=== PATIENT | female | born 1940 | race Caucasian/White ===

== ENCOUNTER → 2019-12-01 12:17 | Outpatient (CLI) | payer MEDICARE | END | disposition home or self-care (01) | LOC: D.RAD 12:17 | PROVIDERS: ATTEND Family Medicine | DX: M54.5 Low back pain (principal) ==

== ENCOUNTER → 2020-01-10 18:34 | Outpatient (CLI) | payer MEDICARE | END | disposition home or self-care (01) | LOC: D.LABREF 18:34 | PROVIDERS: ATTEND Orthopaedic Surgery | DX: M16.12 Unilateral primary osteoarthritis, left hip (principal) ==

== ENCOUNTER 2020-01-13 11:44 | Inpatient (IN) | payer MEDICARE ==
[~2020-01-13] VITALS: Ht 147.3 cm; Wt 72.6 kg
[2020-01-18 11:38] LABS: HEMATOCRIT 37.6 % (36.0-48.0); HEMOGLOBIN 12.2 g/dL (12-16); LYMPHOCYTES 33.4 % (15-50); MCH 29.9 pg (26.0-34.0); MCHC 32.4 g/dL (31.0-37.0); MCV 92.2 fL (80.0-100.0); MEAN PLATELET VOLUME 9.7 fL (7.4-10.4); NEUTROPHILS 51.4 % (40-80); PLATELET COUNT 278 10x3/uL (130-400); RBC 4.08 10x6/uL (4.00-5.40); RDW 13.3 % (11.5-14.5); WBC 5.8 10x3/uL (4.8-10.8)
[2020-01-18 11:40] LABS: BILIRUBIN NEGATIVE (NEGATIVE); GLUCOSE NEGATIVE (NEGATIVE); KETONE NEGATIVE (NEGATIVE); NITRITE NEGATIVE (NEGATIVE); SPECIFIC GRAVITY 1.005 (1.005-1.020); UROBILINOGEN NORMAL (NORMAL)
[2020-01-18 11:43] LABS: ANION GAP 12.3 mmol/L (8-16); CALCIUM 9.7 mg/dL (8.5-10.1); CARBON DIOXIDE 25.2 mmol/L (21.0-32.0); CREATININE - SERUM 1.2 mg/dL (0.6-1.3); POTASSIUM - SERUM 4.5 mmol/L (3.5-5.1)
[2020-01-18] MEDS ORDERED: LISINOPRIL20 MG PO (11:44)
[2020-01-18] MEDS ORDERED: SYNTHROID200 MC1 PO (11:44)
[2020-01-18] MEDS ORDERED: MYRBETRIQ25 MG PO (11:44)
[2020-01-18] MEDS ORDERED: ACETAMINOPHEN500 M1 PO (11:45)
[2020-01-18 11:47] LABS: APTT 27.4 SECONDS (22.8-39.4)
[2020-01-18 11:48] LABS: PROTIME 13.2 SECONDS (11.6-15.0)
[2020-01-23] VITALS (8 sets, daily range): BP systolic 95–142; BP diastolic 43–74; BMI 33.5
--- NOTE | 2020-01-23 17:21 | NUR ---
HIBACLENS AND ALCOHOL USED TO CLEAN BEFORE PREP. STERILE GOWNED AND GLOVED TO PREP WITH HIBACLENS. THROUGH TRAFFIC KEPT TO A MINIMUM.
--- NOTE | 2020-01-23 19:00 | NUR ---
REC'D PATIENT FROM RECOVERY. VSS. PATIENT ON 3L NC. PLACED SCD'S ON PATIENT. PLACED ICE TO LEFT HIP. GAVE PATIENT ICE CHIPS. FAMILY AT BEDSIDE. BED IN LOWEST POSITION, CALL LIGHT WITHIN REACH, BED ALARM ON. ENCOURAGED PATIENT AND FAMILY TO CALL WITH NEEDS. WILL CONTINUE TO MONITOR.
--- NOTE | 2020-01-23 20:04 | NUR ---
ADMINISTERED MEDS PER ORDERS. DENIES OTHER NEEDS AT THIS TIME. WILL CONTINUE TO MONITOR.
[2020-01-24] VITALS (7 sets, daily range): BP systolic 100–124; BP diastolic 49–64; Ht 147.3 cm; Wt 72.6 kg
--- NOTE | 2020-01-24 01:05 | NUR ---
PATIENT RESTING IN BED WITH EYES CLOSED. VSS. RESP EVEN AND UNLABORED. DAUGHTER AT BEDSIDE. WILL CONTINUE TO MONITOR.
--- NOTE | 2020-01-24 01:57 | NUR ---
PATIENT RESTING IN BED WITH EYES CLOSED AND NO S/S OF DISTRESS. BED IN LOWEST POSITION, CL IN REACH. WILL CONTINUE TO MONITOR.
[2020-01-24 07:46] LABS: HEMATOCRIT 29.8 % (36.0-48.0); HEMOGLOBIN 9.6 g/dL (12-16); MCH 29.9 pg (26.0-34.0); MCHC 32.2 g/dL (31.0-37.0); MCV 92.8 fL (80.0-100.0); MEAN PLATELET VOLUME 10.3 fL (7.4-10.4); RBC 3.21 10x6/uL (4.00-5.40); RDW 13.4 % (11.5-14.5)
--- NOTE | 2020-01-24 09:10 | NUR ---
PT RESTING QUIETLY IN BED WITH FAMILY AT BEDSIDE. O2 @ 3L NC IN PLACE. RESP EVEN AND UNLABORED. PT REPORTS PAIN 5/10 AT THIS TIME, PAIN MEDS TO BE ADMINISTERED. SALINE LOC TO RIGHT FOREARM, SITE WITHOUT REDNESS OR EDEMA. DRESSING C/D/I TO LEFT HIP. DENIES FURTHER NEEDS AT THIS TIME. CL WITHIN REACH. ENCOURAGED TO CALL WITH NEEDS. CONTINUE POC
--- NOTE | 2020-01-24 15:20 | NUR ---
SPOKE WITH MARYJANE BELL APN REGARDING PT BEING WITHOUT URINE OUTPUT SINCE IN AND OUT CATH AT 0645 THIS MORNING. INFORMED MARYJANE OF BLADDER SCAN SHOWING 65ML, BUT PT VOICES FEELINGS OF BEING FULL AND PAINFUL TO PALPATATION. MARYJANE ORDERED FOR F/C TO BE PLACED AND OTHER ORDERS NOTED. 16 FR F/C PLACED VIA STERILE TECHNIQUE FOR URINARY RETENTION. IMMEDIATE RETURN OF 275ML OF CLOUDY YELLOW URINE OBTAINED FOR UA. 1545, CONTACTED LAB FOR LAB PICKUP. PT MALIHA WELL
[2020-01-24 15:45] LABS: ANION GAP 11.8 mmol/L (8-16); CALCIUM 8.9 mg/dL (8.5-10.1); CARBON DIOXIDE 22.3 mmol/L (21.0-32.0); CREATININE - SERUM 1.4 mg/dL (0.6-1.3); POTASSIUM - SERUM 5.1 mmol/L (3.5-5.1)
[2020-01-24 17:39] LABS: BILIRUBIN NEGATIVE (NEGATIVE); GLUCOSE NEGATIVE (NEGATIVE); KETONE NEGATIVE (NEGATIVE); NITRITE NEGATIVE (NEGATIVE); UROBILINOGEN NORMAL (NORMAL)
[2020-01-24 17:40] LABS: BACTERIA MODERATE /hpf (NEGATIVE); EPITHELIAL CELLS 0-5 /hpf (0-5); RED CELLS - URINE OCC /hpf (0-5)
--- NOTE | 2020-01-24 20:00 | NUR ---
ALERT RESTING IN BED C/O OF LEFT HIP PAIN WITH MOVEMENT OTHERWISE OK, FAMILY AT BEDSIDE, DAUGHTER REPORTS HAS BEEN HAVING SOME CONFUSION NOT SURE WHY, ELY CATH DRAING YELLOW URINE, SEE SHIFT ASSESSMENT CALL LIGHT IN REACH, REQUESTING PAIN MEDS, NORCO GIVEN ORDERED
[2020-01-25 04:30] VITALS: BP 95/48
[2020-01-25 06:54] LABS: HEMATOCRIT 24.8 % (36.0-48.0); HEMOGLOBIN 8.1 g/dL (12-16); MCH 29.9 pg (26.0-34.0); MCHC 32.7 g/dL (31.0-37.0); MCV 91.5 fL (80.0-100.0); MEAN PLATELET VOLUME 10.4 fL (7.4-10.4); RBC 2.71 10x6/uL (4.00-5.40); RDW 13.3 % (11.5-14.5); WBC 9.7 10x3/uL (4.8-10.8)
[2020-01-25 08:00] VITALS: BP 113/75
--- NOTE | 2020-01-25 09:18 | NUR ---
PT SLIGHTLY CONFUSED AT TIMES. BREATH SOUNDS CLEAR BILAT. IV TO RIGHT FOREARM, SALINE LOCKED. DRESSING TO LEFT HIP, DRESSING CDI. PT NOT ANSWERING PAIN LEVEL WITH A NUMBER, "IT'S NOT TOO BAD, I JUST HAD A PAIN PILL". ELY IN PLACE. SCD'S IN USE. BED LOW, CALL LIGHT IN REACH. NO OTHER NEEDS AT THIS TIME.
--- NOTE | 2020-01-25 09:38 | MORECARE ---
CASE MANAGEMENT DISCHARGE SUMMARY PATIENT: EMILY VILLALTA UNIT: [id number] ADM DATE: 01/23/20 AGE: 79 : 41 SEX: F ROOM/BED: D.1213 AUTHOR: SCOT RAMIREZ PHYSICIAN: REFERRING PHYSICIAN: TALYA BAUM MD DATE OF SERVICE: 01/25/20 Discharge Plan Patient Name: EMILY VILLALTA Facility: [facility]:[place] : 1940 Planned Disposition: Home with Home Health Anticipated Discharge Date: Discharge Date: Expected LOS: Initial Reviewer: [email or web address] Initial Review Date: 01/23/2020 Generated: 01/25/20 10:37 am DCPIA - Discharge Planning Initial Assessment Updated by [email or web address]: Sania Marin on 01/25/20 9:35 am * Is the patient Alert and Oriented? Yes * PCP CATERINA * [facility] [address] * Preadmission Environment Home with Family * ADLs Independent * Equipment Bedside Commode Rolling Walker * List name and contact numbers for known caregivers / representatives who currently or will assist patient after discharge: JEANNE ( DAUGHTER) [phone] * Verbal permission to speak to the caregivers and representatives has been obtained from the patient. Yes * Community resources currently utilized None * Additional services required to return to the preadmission environment? Yes * Can the patient safely return to the preadmission environment? Yes * Has this patient been hospitalized within the prior 30 days at any hospital? No Patient Name: EMILY VILLALTA Page [phone] at 0938 All edits/amendments must be made on the electronic document DICTATION DATE: 01/25/20936 MOLDING AND TRIM INSTALLER: OWEN 01/25/20936 RPT#: [id number] DC DATE: STATUS: ADM IN [facility] [address] [place] [address] END OF REPORT
--- NOTE | 2020-01-25 09:45 | MORECARE ---
CASE MANAGEMENT DISCHARGE SUMMARY PATIENT: EMILY VILLALTA UNIT: [id number] ADM DATE: 01/23/20 AGE: 79 : 41 SEX: F ROOM/BED: D.1213 AUTHOR: SCOT RAMIREZ PHYSICIAN: REFERRING PHYSICIAN: TALYA BAUM MD DATE OF SERVICE: 01/25/20 Discharge Plan Patient Name: EMILY VILLALTA Facility: [facility]:[place] : 1940 Planned Disposition: Home with Home Health Anticipated Discharge Date: Discharge Date: Expected LOS: Initial Reviewer: [email or web address] Initial Review Date: 01/23/2020 Generated: 01/25/20 10:44 am DCP- Discharge Planning Updated by [email or web address]: Sania Marin on 01/25/20 8:[address] Patient Name: EMILY VILLALTA Admission Status: Elective Accout number: [id number] Admission Date: 01-23-2020 : 1940 Admission Diagnosis: Attending: TALYA BAUM Current LOS: 2 Anticipated DC Date: Planned Disposition: Home with Home Health Primary Insurance: [employer] MEDICARE PPO or HMO Discharge Planning Comments: CM met with patient to complete initial dc planning assessment. CM educated patient on the CM role and verbal consent given by patient to complete assessment. Patient lives at home with her spouse Fernando where she was independent with her care. At discharge patient plans to return home and feels this is a safe discharge. Her daughter will be her clamp truck driver home. CM discussed availability of home health, rehab services, and medical equipment. She would like to do HH, but not sure who to use. She was a little confused this AM & was more worried about the right BSC being delivered. She usually does not use DME. She has a walker and BSC that was delivered, but that it is not the right one. I will look into what she is talking about. She stated that her daughter was trying to take care of it. I will visit with her again at a later time when her confusion is better. Patient denied known discharge needs at this time. CM will continue to follow and will assist as needed with dc plans/needs. Library Clerk Talking Books: Sania Marin DCPIA - Discharge Planning Initial Assessment Updated by [email or web address]: Sania Marin on 01/25/20 9:35 am * Is the patient Alert and Oriented? Yes * PCP CATERINA * Pharm[facility] [address] * Preadmission Environment Home with Family * ADLs Independent * Equipment Bedside Commode Rolling Walker * List name and contact numbers for known caregivers / representatives who currently or will assist patient after discharge: JEANNE ( DAUGHTER) [phone] * Verbal permission to speak to the caregivers and representatives has been obtained from the patient. Yes * Community resources currently utilized None * Additional services required to return to the preadmission environment? Yes * Can the patient safely return to the preadmission environment? Yes * Has this patient been hospitalized within the prior 30 days at any hospital? No Last DP export: 01/25/20 8:38 a Patient Name: EMILY VILLALTA Page [phone] at 0945 All edits/amendments must be made on the electronic document DICTATION DATE: 01/25/20944 LEAD ANDROID DEVELOPER: OWEN 01/25/20944 RPT#: [id number] DC DATE: STATUS: ADM IN [facility] [address] [place] [address] END OF REPORT
[2020-01-25 10:59] LABS: ANION GAP 11.9 mmol/L (8-16); CALCIUM 8.3 mg/dL (8.5-10.1); CARBON DIOXIDE 23.4 mmol/L (21.0-32.0); CREATININE - SERUM 1.6 mg/dL (0.6-1.3)
[2020-01-25 11:01] LABS: POTASSIUM - SERUM 4.3 mmol/L (3.5-5.1)
--- NOTE | 2020-01-25 16:23 | NUR ---
ARRIVED TO UNIT FROM MED 3, FAMILY AT BEDSIDE, C/O NAUSEA, CONT TO MONITOR AND MEDICATE POSSIBLE
[2020-01-25 20:00] VITALS: BP 162/52
--- NOTE | 2020-01-25 20:00 | NUR ---
ALERT RESTING IN BED SON AND DAUGHTER AT BEDSIDE, PT C/O ABD PAIN DISTENTION NOTED WITH HYPOACTIVE BOWEL SOUNDS, ALSO C/O NAUSEA WITH VOMITING TODAY, HAS RECIEVED DUCOLAX TAB EARLIER, SON HAS MULTIPLE QUESTIONS ABOUT LABS AND XRAYS TODAY AND WANTS TO SPEAK WITH DR OR SEO SPECIALIST, INFORMED WILL CONTACT SANITATION WORKER CLEANING MACHINERY SEO SPECIALIST, REPORTS PAIN TO LEFT HIP ONLY WITH MOVEMENT, CALL LIGHT IN REACH
--- NOTE | 2020-01-25 20:30 | NUR ---
CALL TO AND DISCUSSED WITH JUAN AGUIRRE COOLING TOWER TECHNICIAN ABD DISTENTION AND FAMILY REQUEST TO SPEAK WITH SOMEONE ABOUT CONCERNS OF PT CONDITION, INSTRUCTED TO GIVE MAG CITRATE PREVIOUSELY ORDERED , GIVEN ORDERED
--- NOTE | 2020-01-25 22:15 | NUR ---
JUAN AGUIRRE HERE TO SEE PT QUESTIONS ANSWERED, ZOFRAN GIVEN IV FOR C/O NAUSEA, WILL MONITOR
[2020-01-26] VITALS: BP 153/81
--- NOTE | 2020-01-26 02:00 | NUR ---
ASSISTED UP TO BEDSIDE COMODE FOR BM, VERY SMALL AMOUT OF LIQUID STOOL PASSED, ABD REMAING DISTENDED
[2020-01-26 04:00] VITALS: BP 146/55
[2020-01-26 05:31] LABS: BASOPHILS 0.2 % (0-2); EOSINOPHILS 0.4 % (0-7); IMMATURE GRANULOCYTES 0.4 % (0-5); LYMPHOCYTES 7.3 % (15-50); MCH 30.1 pg (26.0-34.0); MCHC 33.6 g/dL (31.0-37.0); MEAN PLATELET VOLUME 10.7 fL (7.4-10.4); MONOCYTES 9.1 % (2-11); NEUTROPHILS 82.6 % (40-80); PLATELET COUNT 217 10x3/uL (130-400); RDW 13.7 % (11.5-14.5); WBC 11.4 10x3/uL (4.8-10.8)
[2020-01-26 05:32] LABS: HEMATOCRIT 35.7 % (36.0-48.0); MCV 89.5 fL (80.0-100.0); RBC 3.99 10x6/uL (4.00-5.40)
[2020-01-26 06:12] LABS: ANION GAP 13.4 mmol/L (8-16); CALCIUM 9.3 mg/dL (8.5-10.1); CARBON DIOXIDE 21.9 mmol/L (21.0-32.0); CREATININE - SERUM 1.2 mg/dL (0.6-1.3); POTASSIUM - SERUM 4.3 mmol/L (3.5-5.1)
[2020-01-26 08:40] VITALS: BP 140/53
[2020-01-26 12:41] VITALS: BP 145/58
--- NOTE | 2020-01-26 12:50 | NUR ---
I have reviewed this patient and I concur with the Shift Assessment completed by the Licensed Practical Nurse today this shift.
--- NOTE | 2020-01-26 12:53 | NUR ---
Nutrition follow-up: Pt reports some nausea; however, appetite has been good Diet: Regular with po intake 75-100% of most meals Labs reviewed; Na very low Wt: 160# Will continue to provide food choices and honor food preferences. RDN following.
--- NOTE | 2020-01-26 14:45 | NUR ---
Rehab Note- Acute Inpatient Rehab prescreen order received. THe patient has [employer] insurance and will require a PreAuth prior to an acute inpatient rehab stay. She has a pending OT Eval that will be needed for PreAuth process. Will begin PreAuth process and follow at this time. Thank you for this referral! Anayeli Santiago RN Clinical Liaison, [facility] Rehab
[2020-01-26 16:21] VITALS: BP 117/55
--- NOTE | 2020-01-26 18:51 | NUR ---
RESTING IN BED WITH EYES CLOSED. RESPIRTATIONS EVEN AND UNLABORED. NO S/S OF ACUTE DISTRESS NOTED. FAMILY AT BEDSIDE. DENIES ANY NEEDS AT THIS TIME. CALL LIGHT IN REACH. WILL CONTINUE TO MONITOR.
[2020-01-26 20:00] VITALS: BP 117/53
--- NOTE | 2020-01-26 20:00 | NUR ---
ALERT SITTING UP IN BED STATES FEELING BETTER TODAY HAS WALKED 3 TIMES TODAY AND HAD SM BM, ABD REMAINS DISTENDED NOT FIRM PREVIOUSLY, PT AND DAUGHTER REPORT PASSING GAS, SEE SHFIT ASSESSMENT, CALL LIGHT IN REACH
--- NOTE | 2020-01-26 21:30 | NUR ---
ASSISTED UP TO BEDSIDE COMODE, HAD SM AMOUT CLEAR JELLY APPEARING STOOL, ASSISTED BACK TO BED, DENIES NEEDS AT THIS TIME
[2020-01-27] VITALS: BP 117/48
[2020-01-27 04:00] VITALS: BP 131/38
[2020-01-27 05:37] LABS: BASOPHILS 0.2 % (0-2); EOSINOPHILS 2.1 % (0-7); HEMATOCRIT 31.9 % (36.0-48.0); HEMOGLOBIN 10.7 g/dL (12-16); IMMATURE GRANULOCYTES 0.3 % (0-5); LYMPHOCYTES 13.8 % (15-50); MCH 30.2 pg (26.0-34.0); MCHC 33.5 g/dL (31.0-37.0); MCV 90.1 fL (80.0-100.0); MEAN PLATELET VOLUME 10.4 fL (7.4-10.4); MONOCYTES 13.9 % (2-11); NEUTROPHILS 69.7 % (40-80); PLATELET COUNT 214 10x3/uL (130-400); RBC 3.54 10x6/uL (4.00-5.40); RDW 13.8 % (11.5-14.5)
[2020-01-27 06:00] LABS: ANION GAP 11.4 mmol/L (8-16); CALCIUM 9.3 mg/dL (8.5-10.1); CARBON DIOXIDE 23.6 mmol/L (21.0-32.0)
--- NOTE | 2020-01-27 08:00 | NUR ---
PATIENT LEFT PEDAL PULSE PALPABLE. FAMILY MARK AND DAUGHTER IN ROOM. CL IN REACH. DISCUSSED REHAB AT OUR FACILITY IF POSSIBLE. CL IN REACH. WCTM.
[2020-01-27 08:49] VITALS: BP 140/46
--- NOTE | 2020-01-27 12:00 | NUR ---
QUESTIONS/CONCERNS ABOUT ELY. I INITIATED BLADDER TRAINING. TAUGHT THE DAUGHTER HOW TO DO IT WELL SINCE WE HAVE A ELY FOR RETENTION. CL IN REACH. NO FURTHER QUESTIONS AT THIS TIME. ALEJANDRO
[2020-01-27 12:47] VITALS: BP 143/62
[2020-01-27 16:00] VITALS: BP 122/45
--- NOTE | 2020-01-27 17:06 | NUR ---
FAMILY IN ROOM. PT HAS HAD A MED BM. FAMILY IN ROOM. CL IN REACH. [facility]
--- NOTE | 2020-01-27 18:01 | NUR ---
DRESSING CHANGE PER Sharif BELL APN VERBAL ORDER. NAZIA BANUELOS SUP IS OBTAINING THE WOUND VAC
[2020-01-27 20:00] VITALS: BP 122/53
--- NOTE | 2020-01-27 20:00 | NUR ---
A&O X 4, FAMILY AT BEDSIDE. DRESSING TO LEFT HIP C/D/I. DENIES PAIN. REPORTS 2 BMs ON DAYSHIFT, NO FURTHER NEEDS VOICED, CTM.
[2020-01-28] VITALS: BP 118/52
[2020-01-28 04:00] VITALS: BP 115/52
[2020-01-28 06:15] LABS: BASOPHILS 0.5 % (0-2); EOSINOPHILS 3.6 % (0-7); HEMATOCRIT 30.9 % (36.0-48.0); HEMOGLOBIN 10.1 g/dL (12-16); IMMATURE GRANULOCYTES 0.5 % (0-5); LYMPHOCYTES 19.9 % (15-50); MCHC 32.7 g/dL (31.0-37.0); MCV 91.7 fL (80.0-100.0); MEAN PLATELET VOLUME 10.3 fL (7.4-10.4); MONOCYTES 13.1 % (2-11); NEUTROPHILS 62.4 % (40-80); PLATELET COUNT 218 10x3/uL (130-400); RBC 3.37 10x6/uL (4.00-5.40); RDW 13.8 % (11.5-14.5); WBC 8.2 10x3/uL (4.8-10.8)
[2020-01-28 06:33] LABS: ANION GAP 10.6 mmol/L (8-16); CALCIUM 8.9 mg/dL (8.5-10.1); CARBON DIOXIDE 25.2 mmol/L (21.0-32.0); POTASSIUM - SERUM 3.8 mmol/L (3.5-5.1)
--- NOTE | 2020-01-28 09:11 | OP ---
PATIENT NAME: EMILY VILLALTA MEDICAL RECORD: [id number] :[birth year] LOCATION:D[address] [id number] ADMISSION DATE:01/23/20 SURGEON: TALYA BAUM MD DATE OF OPERATION: 01/23/2020 PREOPERATIVE DIAGNOSIS: Degenerative arthritis of the left hip. POSTOPERATIVE DIAGNOSIS: Degenerative arthritis of the left hip. PROCEDURE: Left total hip arthroplasty. SURGEON: Talya Baum MD BAG MAKING MACHINE OPERATOR: DELMI Blanco INTRAOPERATIVE COMPLICATIONS: None. SUMMARY OF PATHOLOGIC FINDINGS: The patient had severe osteoarthritis of the left hip as noted on previous radiographs. IMPLANTS USED: Adwoa Accolade II system with a Trident 2 cup, a size 4 Accolade II stem was put into place with a size 50 Trident II cluster hole shell, polyethylene insert 36 alpha code D and a ceramic V40 femoral head -2.5 x 36. ESTIMATED BLOOD LOSS: 200 cc. OPERATIVE SUMMARY IN DETAIL: After obtaining the appropriate preoperative orthopedic surgery consents as well as anesthetic consultation, evaluation and clearance, the patient was brought to the operative suite and placed on the operative suite in supine position. After adequate general laryngeal mask airway was administered, the patient was placed in a right lateral decubitus position. All pressure points were well padded to include down leg peroneal pad as well as axillary roll. The patient was held firmly to the operating room table using the vacuum pack suction system. Left lower extremity and hip were then prepped and draped in routine sterile fashion. At this point, the appropriate timeout was taken and agreed upon by all given the patient's unique identifiers. Curvilinear incision was made over the level of the greater trochanter, taken down to the level of the IT band which was split in line with the fibers of the IT band to reveal the gluteus medius and minimus attachment to the greater trochanter. These were reflected anteriorly, only the bottom one-third of the gluteus medius was reflected. The hip capsule was exposed and a T-type fashion incision was made in the hip capsule and saved for later reapproximation. Hip was dislocated. Femoral neck cut was made using the femoral neck cutting guide for the Accolade II system. The acetabulum was then exposed. Circumferential labrectomy was followed by reaming to the appropriate 49 for placement of the Accolade II. The Trident 2 hip cup was put into place with good capture and the polyethylene was then put into place and checked for stability. Attention was then returned to the proximal femur where serial and sequential reaming and broaching were done for a size 5 Accolade II stem. Trial was undertaken and it was thought that the 2.5 minus was the appropriate head. This was tamped in place with the Kenyon taper. Hip was reduced, taken through range of motion and found to be stable in all planes. Intraoperative radiographs showed good return OPERATIVE REPORT [id number] EMILY VILLALTA of the patient's leg lengths as well as good position and placement of all components. Wound was then irrigated and filled with a gram of vancomycin and a gram of tobramycin. Hip capsule was closed with #2 Ethibond. This was followed by reapproximation of gluteus medius and minimus to the greater trochanter in a transosseous fashion with #5 Ethibond. The IT band was then closed with #2 Ethibond by DELMI Blanco including the skin with #1 Vicryl, 2-0 Vicryl and skin itzel. Sterile dressings were applied. The patient was then awakened and taken to recovery room in stable condition. All final needle and sponge counts were correct. TRANSINT:[id number] Voice Confirmation ID: [id number] DOCUMENT ID: [id number] SARIKA SMITH, TALYA KIMBALL at 0911 CC: [id number] DICTATION DATE: 01/27/20 1006 UPHOLSTERER LIMOUSINE AND HEARSE: 01/27/20 1643 ADM IN [facility] [address] [place] [address]
[2020-01-28 09:18] VITALS: BP 120/54
[2020-01-28 13:21] VITALS: BP 119/46
[2020-01-28 16:35] VITALS: BP 136/59
--- NOTE | 2020-01-28 17:18 | NUR ---
PATIENT IN BED NAPPING. FAMILY AT BEDSIDE. DENIES NEEDS. PATIENT WITHOUT DISTRESS. WILL CONTINUE TO MONITOR.
[2020-01-28 20:00] VITALS: BP 100/52
--- NOTE | 2020-01-28 20:30 | NUR ---
LYING IN BED TALKING TO S-I-L. ALERT AND ORIENTED X4. RESP EVEN AND NONLABORED. ABD IS DISTENDED. PASSING GAS AND REPORTS LAST BM TODAY. BS ARE ACTIVE X4 QUADS. ELY CATH PATENT AND DRAINING CLEAR YELLOW URINE. SCDS IN USE BILAT. PROVENA WOUND VAC NOTED LT HIP WITH NO DRAINAGE NOTED. SALINE LOCK NTOED TO LT FOREARM. REPORTS PAIN IN LT HIP 3 BUT DENIES NEED FOR PAIN MED AT THIS TIME. JONELLE ALARM ON. SR ELEVATED X2. CL IN REACH.
--- NOTE | 2020-01-28 23:30 | NUR ---
MEDICATED WITH NORCO FOR C/O PAIN IN LT HIP. ICE PACKS APPLIED PER REQUEST. CL IN REACH.
[2020-01-29] VITALS: BP 116/69
--- NOTE | 2020-01-29 02:43 | NUR ---
RESTING IN BED WITH EYES CLOSED. RESP NONLABORED. NO DISTRESS. HAS RESTED WELL SINCE RECEIVING PAIN MED. CL IN REACH.
[2020-01-29 04:00] VITALS: BP 101/53
--- NOTE | 2020-01-29 04:20 | NUR ---
MEDICATED WITH NORCO FOR C/O LT HIP PAIN. CL IN REACH.
[2020-01-29 06:28] LABS: BASOPHILS 0.5 % (0-2); EOSINOPHILS 3.8 % (0-7); HEMOGLOBIN 10.3 g/dL (12-16); IMMATURE GRANULOCYTES 0.5 % (0-5); LYMPHOCYTES 19.2 % (15-50); MCH 29.7 pg (26.0-34.0); MCHC 32.2 g/dL (31.0-37.0); MCV 92.2 fL (80.0-100.0); MEAN PLATELET VOLUME 9.9 fL (7.4-10.4); MONOCYTES 12.4 % (2-11); NEUTROPHILS 63.6 % (40-80); PLATELET COUNT 241 10x3/uL (130-400); RBC 3.47 10x6/uL (4.00-5.40); RDW 13.7 % (11.5-14.5); WBC 7.8 10x3/uL (4.8-10.8)
[2020-01-29 06:38] LABS: ANION GAP 9.3 mmol/L (8-16); CARBON DIOXIDE 27.2 mmol/L (21.0-32.0); POTASSIUM - SERUM 3.5 mmol/L (3.5-5.1)
--- NOTE | 2020-01-29 08:37 | NUR ---
SHE IS SLEEPY THIS MORNING. SHE HAS THE WOUND VAC TO THE LEFT HIP, WITH ICE. THE CALL LIGHT IS WITHIN REACH AND THE BED ALARM ON.
[2020-01-29 09:38] VITALS: BP 120/60
[2020-01-29 12:59] VITALS: BP 93/60
[2020-01-29 15:50] VITALS: BP 138/60
--- NOTE | 2020-01-29 19:50 | NUR ---
LYING IN BED. ALERT AND ORIENTED X4. RESP EVEN AND NONLABORED. PROVENA WOUND VAC NOTED TO LT HIP WITH PINK CLEAR DRAINAGE NOTED IN CANISTER. ICE PACKS PLACED ON HIP. SCDS IN USE. ELY CATH PATENT AND DRAINING CLEAR YELLOW URINE. REPORTS PAIN IN LT HIP 3. ABD IS DISTENDED AND FIRM. BS HYPOACTIVE X4 QUADS. SALINE LOCK NOTED TO LT FOREARM. SR ELEVATED X. CL IN REACH. BED ALARM IN USE.
[2020-01-29 20:00] VITALS: BP 115/43
--- NOTE | 2020-01-29 20:00 | NUR ---
MEDICATED WITH NORCO FOR C/O LT HIP PAIN. CL IN REACH.
--- NOTE | 2020-01-30 02:54 | NUR ---
MEDCIATED WITH NORCO FOR C/O PAIN IN LT HIP. CL IN REACH.
[2020-01-30 04:00] VITALS: BP 123/49
[2020-01-30 05:23] LABS: ANION GAP 9.1 mmol/L (8-16); CALCIUM 8.8 mg/dL (8.5-10.1); CARBON DIOXIDE 27.3 mmol/L (21.0-32.0); CREATININE - SERUM 0.9 mg/dL (0.6-1.3); POTASSIUM - SERUM 3.4 mmol/L (3.5-5.1)
[2020-01-30 05:24] LABS: BASOPHILS 0.6 % (0-2); EOSINOPHILS 3.9 % (0-7); HEMATOCRIT 31.4 % (36.0-48.0); HEMOGLOBIN 10.3 g/dL (12-16); IMMATURE GRANULOCYTES 0.6 % (0-5); LYMPHOCYTES 22.8 % (15-50); MCH 30.1 pg (26.0-34.0); MCHC 32.8 g/dL (31.0-37.0); MCV 91.8 fL (80.0-100.0); MONOCYTES 11.7 % (2-11); NEUTROPHILS 60.4 % (40-80); PLATELET COUNT 261 10x3/uL (130-400); RBC 3.42 10x6/uL (4.00-5.40); RDW 13.7 % (11.5-14.5)
[2020-01-30 08:00] VITALS: BP 110/50
--- NOTE | 2020-01-30 08:30 | NUR ---
SHE IS EATING BREAKFAST. WOUND VAC TO THE LEFT HIP. THE CALL LIGHT IS WITHIN REACH AND THE BED ALARM IS ON.
[2020-01-30 11:00] VITALS: BP 103/49
--- NOTE | 2020-01-30 15:49 | NUR ---
Rehab Note- PreAuth initiated and faxed to [facility] for clinical review for possible inpatient acute rehab stay. Will continue to await determination at this time. Thank you for this referral! Anayeli Santiago RN Clinical Liaison, [facility] Rehab
--- NOTE | 2020-01-30 16:34 | MORECARE ---
CASE MANAGEMENT DISCHARGE SUMMARY PATIENT: EMILY VILLALTA UNIT: [id number] ADM DATE: 01/23/20 AGE: 79 : 41 SEX: F ROOM/BED: D.2213 AUTHOR: SCOT RAMIREZ PHYSICIAN: REFERRING PHYSICIAN: TALYA BAUM MD DATE OF SERVICE: 01/30/20 Discharge Plan Patient Name: EMILY VILLALTA Facility: [facility]:[place] : 1940 Planned Disposition: Home with Home Health Anticipated Discharge Date: Discharge Date: Expected LOS: Initial Reviewer: [email or web address] Initial Review Date: 01/23/2020 Generated: 01/30/20 5:34 pm Comments DCP- Discharge Planning Updated by [email or web address]: Sania Marin on 01/30/20 3:[address] SPOKE WITH PATIENT AND DAUGHTER AT LENGTH ABOUT PLAN OF CARE. THEY WOULD LIKE TO GO TO INPATIENT REHAB AT [facility]. SHE WILL NEED AUTH. IMM SERVED AND EXPLAINED AND ROYAL FOR INPATIENT REHAB AT [facility] OBTAINED CM TO FOLLOW AND ASSIST NEEDED DCP- Discharge Planning Updated by [email or web address]: Sania Marin on 01/25/20 8:[address] Patient Name: EMILY VILLALTA Admission Status: Elective Accout number: [id number] Admission Date: 01-23-2020 : 1940 Admission Diagnosis: Attending: TALYA BAUM Current LOS: 2 Anticipated DC Date: Planned Disposition: Home with Home Health Primary Insurance: [employer] MEDICARE PPO or HMO Discharge Planning Comments: CM met with patient to complete initial dc planning assessment. CM educated patient on the CM role and verbal consent given by patient to complete assessment. Patient lives at home with her spouse Fernando where she was independent with her care. At discharge patient plans to return home and feels this is a safe discharge. Her daughter will be her bus driver supervisor home. CM discussed availability of home health, rehab services, and medical equipment. She would like to do HH, but not sure who to use. She was a little confused this AM & was more worried about the right BSC being delivered. She usually does not use DME. She has a walker and BSC that was delivered, but that it is not the right one. I will look into what she is talking about. She stated that her daughter was trying to take care of it. I will visit with her again at a later time when her confusion is better. Patient denied known discharge needs at this time. CM will continue to follow and will assist as needed with dc plans/needs. Rubber Trimmer: Sania Marin DCPIA - Discharge Planning Initial Assessment Updated by [email or web address]: Sania Marin on 01/25/20 9:35 am * Is the patient Alert and Oriented? Yes * PCP CATERINA * Pharmacy [facility] [address] * Preadmission Environment Home with Family * ADLs Independent * Equipment Bedside Commode Rolling Walker * List name and contact numbers for known caregivers / representatives who currently or will assist patient after discharge: JEANNE ( DAUGHTER) [phone] * Verbal permission to speak to the caregivers and representatives has been obtained from the patient. Yes * Community resources currently utilized None * Additional services required to return to the preadmission environment? Yes * Can the patient safely return to the preadmission environment? Yes * Has this patient been hospitalized within the prior 30 days at any hospital? No Coverage Notice Reviewer: [email or web address] Roman Marin Notice Issued Date-Time: 01/30/2020 14:55 Notice Type: IM Discharge Notice Notice Delivered To: Family Member Relationship to Patient: Daughter Manager Mental Health Name: JEANNE WELCH Delivery Method: HAND - Hand Delivered Aicha Days: Prior Verbal Notification: Recipient Understood Notice: Yes Recipient Signature: Yes Med Rec Note Co-signed by Attending: Coverage Notice Comment: IMM SERVED AND EXPLAINED Reviewer: [id number] Roman Marin Notice Issued Date-Time: 01/30/2020 14:55 Notice Type: Patient Choice Letter Notice Delivered To: Patient Relationship to Patient: Manager Mental Health Name: Delivery Method: HAND - Hand Delivered Aicha Days: Prior Verbal Notification: Recipient Understood Notice: Yes Recipient Signature: Yes Med Rec Note Co-signed by Attending: Coverage Notice Comment: ROYAL WITH INPATIENT REHAB Last DP export: 01/25/20 8:45 a Patient Name: EMILY VILLALTA Page [id number] at 1634 All edits/amendments must be made on the electronic document DICTATION DATE: 01/30/201633 AIRPLANE NAVIGATOR: DM 01/30/201633 RPT#: [id number] DC DATE: STATUS: ADM IN [facility] [address] [place] [address] END OF REPORT
[2020-01-30 16:40] VITALS: BP 117/38
--- NOTE | 2020-01-30 18:45 | NUR ---
I HAVE DONE BLADDER TRAINING THIS AFTERNOON. SHE HAS HAD THE URGE TO VOID ONCE, IF RELEASED THE ELY AND CLAMPED IT AGAIN. IT IS CURRENTLY CLAMPED. THE CALL LIGHT IS WITHIN REACH AND THE BED ALARM IS ON AND IN PLACE.
[2020-01-30 20:00] VITALS: BP 105/43
--- NOTE | 2020-01-30 20:29 | NUR ---
ASSISTED PT TO RESTROOM WHERE PT HAD A LARGE BM, ASSISTED PT BACK TO BED AND ADMINISTERED SCHEDULED MEDS, NO OTHER NEEDS AT THIS TIME, CONTINUE WITH PLAN OF CARE
[2020-01-31] VITALS: BP 116/44
--- NOTE | 2020-01-31 00:42 | NUR ---
I have reviewed this patient and I concur with the Shift Assessment completed by the Licensed Practical Nurse today this shift.
[2020-01-31 04:00] VITALS: BP 133/64
--- NOTE | 2020-01-31 04:07 | NUR ---
PT ON CL, NEEDS ASSISTANCE TO RESTROOM, ASSISTED PT TO RESTROOM AND REMOVED ELY CATHETER, PT BLADDER TRAINED ALL NIGHT, CONTINUE WITH PLAN OF CARE
[2020-01-31 06:49] LABS: BASOPHILS 0.3 % (0-2); EOSINOPHILS 2.4 % (0-7); HEMATOCRIT 34.7 % (36.0-48.0); HEMOGLOBIN 11.2 g/dL (12-16); IMMATURE GRANULOCYTES 0.6 % (0-5); LYMPHOCYTES 15.1 % (15-50); MCH 29.6 pg (26.0-34.0); MCHC 32.3 g/dL (31.0-37.0); MCV 91.8 fL (80.0-100.0); MEAN PLATELET VOLUME 9.6 fL (7.4-10.4); MONOCYTES 11.3 % (2-11); NEUTROPHILS 70.3 % (40-80); PLATELET COUNT 303 10x3/uL (130-400); RBC 3.78 10x6/uL (4.00-5.40); RDW 13.6 % (11.5-14.5)
[2020-01-31 06:53] LABS: WBC 9.3 10x3/uL (4.8-10.8)
[2020-01-31 07:04] LABS: ANION GAP 11.9 mmol/L (8-16); CALCIUM 9.8 mg/dL (8.5-10.1); CARBON DIOXIDE 26.8 mmol/L (21.0-32.0); CREATININE - SERUM 0.9 mg/dL (0.6-1.3); POTASSIUM - SERUM 3.7 mmol/L (3.5-5.1)
--- NOTE | 2020-01-31 07:18 | NUR ---
PT IS RESTING IN BED WITH EYES CLOSED. RESPIRATIONS ARE EVEN AND UNLABORED. PT IS EASILY AROUSED WITH VERBAL STIMULATION. PT IS AAOX 4 UPON AROUSAL. PT DENIES PRESENCE OF PAIN/N/V AT THIS TIME. FAMILY MEMBER AT BEDSIDE. PIV TO RIGHT FA INFUSING PER ORDER WITHOUT DIFFICULTY. FALL PRECAUTIONS IN PLACE. PT ENCOURAGED TO REPOSITION AND TCDB. PT AND PT FAMILY VERBALIZE UNDERSTANDING. BED IS IN THE LOWEST POSITION. CALL LIGHT AND BEDSIDE TABLE ARE WITHIN REACH. SIDE RAILS X 2. PT AND PT FAMILY DENY FURTHER NEEDS. WILL CONT TO MONITOR.
--- NOTE | 2020-01-31 07:30 | NUR ---
PT IS RESTING IN BED WITH EYES CLOSED. RESPIRATIONS ARE EVEN AND UNLABORED. PT IS EASILY AROUSED WITH VERBAL STIMULATION. PT IS AAOX 4 UPON AROUSAL. WOUND VAC NOTED TO LEFT HIP WITHOUT COMPROMISE. PT DENIES PRESENCE OF NUMBNESS/TINGLING. WALKER AT BEDSIDE. FALL PRECAUTIONS IN PLACE. LEFT FA PIV INPLACE AND SL. FLUSHES WITHOUT DIFFICULTY. BED IS IN THE LOWEST POSITION. CALL LIGHT AND BEDSIDE TABLE ARE WITHIN REACH. SIDE RAILS X 2. PT DENIES PRESENCE OF PAIN/N/V AT THIS TIME. PT DENIES FURTHER NEEDS. WILL CONT TO MONITOR.
[2020-01-31 09:15] VITALS: BP 144/59
[2020-01-31 13:03] VITALS: BP 121/44
--- NOTE | 2020-01-31 14:20 | NUR ---
Rehab Note- Spoke with Kavitha Allen with [facility] and checked Auth process at this time, the patient auth is still pending with Kavitha Marshall, Clinical reviewer. Will continue to await determination. Spoke with JENNY Dowd about pending auth. Thank you for this referral! Anayeli Santiago RN Clinical Liaison, [facility] Rehab
--- NOTE | 2020-01-31 15:53 | NUR ---
OT NOTE: PT COMPLETED SIT TO STAND WITH MIN A/CGA WITH WALKER. PT COMPLETED FACE HYGIENE WITH SETUP. PT COMPLETED BUE AROM EXS WHILE SITTING UP UNSUPPORTED . [id number] THANK YOU,WOLF MENJIVAR
--- NOTE | 2020-01-31 16:54 | NUR ---
Rehab Note- Received call @ 1600 from Kavitha with [facility] with auth approval. Will plan to bring the patient 01/31 when bed avaliable. @1646 Patient's daughter here, very frustrated at this time with the time process of getting Auth approval for her mom & no bed avaliable till tomorrow, explained process of auth, reason for delays with no OT Eval done till 01/29 & received quick auth from [facility] @ 1600 today, requested contacts and numbers for contacts about OT delays, and hospital contact- Provided Sharif Joel's contact, Decorator Consultant, & also Digital Advertising Analyst CNO contact. funeral home manager present and JENNY Estrada present for meeting with patient's daughter. Continue to follow at this time. Thank you for this referral! Anayeli Mendes RN Clinical Liaison, [facility] Rehab
[2020-01-31 16:55] VITALS: BP 124/47
--- NOTE | 2020-01-31 18:29 | NUR ---
PT AMBULATING IN HALLWAY WITHOUT DIFFICULTY. FAMILY AT PT SIDE. WALKER IN USE. WOUND VAC NOTED TO LEFT HIP WITHOUT COMPROMISE. PT DENIES PRESENCE OF PAIN/N/V/DIZZINESS. PT AND PT FAMILY DENY FURTHER NEEDS.
[2020-01-31 20:00] VITALS: BP 130/51
--- NOTE | 2020-01-31 23:33 | NUR ---
ASSISTED PT UP TO RESTROOM PT C/O LEG CRAMP ON FRONT PART OF LEFT LEG AND ASKED IF SHE HAD A MUSCLE RELAXER ON EMAR, CHECKED MAR AND NO ORDERS FOR MUSCLE RELAXER, PT STATES SHE USES A CREAM AT HOME AND THOUGHT SHE MAY HAVE SOME IN BELONGINGS, CHECKED PT BAGS AND NO CREAM FOUND. OFFERED PT PAIN MEDICATION ON MAR AND ICE PACK, CONTINUE WITH PLAN OF CARE
[2020-02-01] VITALS: BP 122/51
--- NOTE | 2020-02-01 03:59 | NUR ---
I have reviewed this patient and I concur with the Shift Assessment completed by the Licensed Practical Nurse today this shift.
[2020-02-01 04:00] VITALS: BP 119/51
[2020-02-01 05:21] LABS: BASOPHILS 0.5 % (0-2); HEMATOCRIT 30.4 % (36.0-48.0); HEMOGLOBIN 9.8 g/dL (12-16); IMMATURE GRANULOCYTES 0.5 % (0-5); MCH 29.5 pg (26.0-34.0); MCHC 32.2 g/dL (31.0-37.0); MCV 91.6 fL (80.0-100.0); MEAN PLATELET VOLUME 9.7 fL (7.4-10.4); MONOCYTES 12.5 % (2-11); NEUTROPHILS 65.5 % (40-80); PLATELET COUNT 270 10x3/uL (130-400); RBC 3.32 10x6/uL (4.00-5.40); RDW 13.6 % (11.5-14.5); WBC 8.4 10x3/uL (4.8-10.8)
[2020-02-01 05:46] LABS: ANION GAP 9.9 mmol/L (8-16); CALCIUM 8.9 mg/dL (8.5-10.1); CARBON DIOXIDE 26.6 mmol/L (21.0-32.0); CREATININE - SERUM 0.9 mg/dL (0.6-1.3); POTASSIUM - SERUM 3.5 mmol/L (3.5-5.1)
--- NOTE | 2020-02-01 08:10 | MORECARE ---
CASE MANAGEMENT DISCHARGE SUMMARY PATIENT: EMILY VILLALTA UNIT: [id number] ADM DATE: 01/23/20 AGE: 79 : 41 SEX: F ROOM/BED: D.2213 AUTHOR: JAMES,DOC PHYSICIAN: REFERRING PHYSICIAN: TALYA BAUM MD DATE OF SERVICE: 02/01/20 Discharge Plan Patient Name: EMILY VILLALTA Facility: [facility]:[place] : 1940 Planned Disposition: Home with Home Health Anticipated Discharge Date: Discharge Date: Expected LOS: Initial Reviewer: [id number] Initial Review Date: 01/23/2020 Generated: 02/01/20 9:09 am Comments DCP- Discharge Planning Updated by [id number]: Sania Marin on 02/01/20 7:[address] LATE ENTRY 01/31/20 @ 1650, PATIENT'S DAUGHTER QUESTIONED ABOUT THE PROGRESS ON THE AUTH FOR INPATIENT REHAB. I SPOKE WITH KEYONA AND SHE STATED THAT SHE HAD JUST RECEIVED A CALL FROM [facility] AND THEY HAVE AUTH, BUT WILL BOT HAVE A BED TILL TOMORROW. EXPAINED TO THE DAUGHTER AND SHE WAS UPSET, SHE ASKED TO SPEAK TO THE INPATIENT PROPERTY WORKER. I WALKED HER DOWN TO INPATIENT REHAB TO SPEAK WITH [facility]. DCP- Discharge Planning Updated by [id number]: Sania Marin on 01/30/20 3:[address] SPOKE WITH PATIENT AND DAUGHTER AT LENGTH ABOUT PLAN OF CARE. THEY WOULD LIKE TO GO TO INPATIENT REHAB AT [facility]. SHE WILL NEED AUTH. IMM SERVED AND EXPLAINED AND [facility] FOR INPATIENT REHAB AT [facility] OBTAINED CM TO FOLLOW AND ASSIST NEEDED DCP- Discharge Planning Updated by [id number]: Sania Marin on 01/25/20 8:[address] Patient Name: EMILY VILLALTA Admission Status: Elective Accout number: [id number] Admission Date: 01-23-2020 : 1940 Admission Diagnosis: Attending: TALYA BAUM Current LOS: 2 Anticipated DC Date: Planned Disposition: Home with Home Health Primary Insurance: AETNA MEDICARE PPO or HMO Discharge Planning Comments: CM met with patient to complete initial dc planning assessment. CM educated patient on the CM role and verbal consent given by patient to complete assessment. Patient lives at home with her spouse Fernando where she was independent with her care. At discharge patient plans to return home and feels this is a safe discharge. Her daughter will be her snaker tractor driver home. CM discussed availability of home health, rehab services, and medical equipment. She would like to do HH, but not sure who to use. She was a little confused this AM & was more worried about the right BSC being delivered. She usually does not use DME. She has a walker and BSC that was delivered, but that it is not the right one. I will look into what she is talking about. She stated that her daughter was trying to take care of it. I will visit with her again at a later time when her confusion is better. Patient denied known discharge needs at this time. CM will continue to follow and will assist as needed with dc plans/needs. Beef Pluck Trimmer: Sania Marin DCPIA - Discharge Planning Initial Assessment Updated by [id number]: Sania Marin on 01/25/20 9:35 am * Is the patient Alert and Oriented? Yes * PCP CATERINA * Pharmacy [facility] [address] * Preadmission Environment Home with Family * ADLs Independent * Equipment Bedside Commode Rolling Walker * List name and contact numbers for known caregivers / representatives who currently or will assist patient after discharge: JEANNE ( DAUGHTER) [phone] * Verbal permission to speak to the caregivers and representatives has been obtained from the patient. Yes * Community resources currently utilized None * Additional services required to return to the preadmission environment? Yes * Can the patient safely return to the preadmission environment? Yes * Has this patient been hospitalized within the prior 30 days at any hospital? No Coverage Notice Reviewer: [email or web address] Marin Notice Issued Date-Time: 01/30/2020 14:55 Notice Type: IM Discharge Notice Notice Delivered To: Family Member Relationship to Patient: Daughter Child Welfare Specialist Name: JEANNE WELCH Delivery Method: HAND - Hand Delivered Aicha Days: Prior Verbal Notification: Recipient Understood Notice: Yes Recipient Signature: Yes Med Rec Note Co-signed by Attending: Coverage Notice Comment: IMM SERVED AND EXPLAINED Reviewer: [id number] Roman Marin Notice Issued Date-Time: 01/30/2020 14:55 Notice Type: Patient Choice Letter Notice Delivered To: Patient Relationship to Patient: Child Welfare Specialist Name: Delivery Method: HAND - Hand Delivered Aicha Days: Prior Verbal Notification: Recipient Understood Notice: Yes Recipient Signature: Yes Med Rec Note Co-signed by Attending: Coverage Notice Comment: [facility] WITH INPATIENT REHAB Last DP export: 01/30/20 3:34 p Patient Name: EMILY VILLALTA Page [phone] at 0810 All edits/amendments must be made on the electronic document DICTATION DATE: 02/01/20808 FINANCIAL SERVICES AGENT: OWEN 02/01/20808 RPT#: [id number] DC DATE: STATUS: ADM IN [facility] [address] [place] [address] END OF REPORT
[2020-02-01 08:45] VITALS: BP 146/49
[2020-02-01] MEDS ORDERED: ELIQUIS2.5 MG PO (09:14)
[2020-02-01] MEDS ORDERED: HYDROCODON-ACE1 EA10 PO (09:15)
--- NOTE | 2020-02-01 10:38 | NUR ---
RESTING IN BED, NO DISTRESS NOTED, FAMILY IN ROOM, NO FREE WATER, PREVENA IN PLACE TO L HIP, UP TO BATHROOM WITH MIN ASSIST
--- NOTE | 2020-02-01 11:21 | NUR ---
REPORT CALLED TO CECI
--- NOTE | 2020-02-01 12:04 | MORECARE ---
CASE MANAGEMENT DISCHARGE SUMMARY PATIENT: EMILY VILLALTA UNIT: [id number] ADM DATE: 01/23/20 AGE: 79 : 41 SEX: F ROOM/BED: D.2213 AUTHOR: JAMES,DOC PHYSICIAN: REFERRING PHYSICIAN: TALYA BAUM MD DATE OF SERVICE: 02/01/20 Discharge Plan Patient Name: EMLIY VILLALTA Facility: [facility]:[place] : 1940 Planned Disposition: Home with Home Health Anticipated Discharge Date: Discharge Date: 02/01/2020 Expected LOS: Initial Reviewer: [email or web address] Initial Review Date: 01/23/2020 Generated: 02/01/20 1:03 pm Comments DCP- Discharge Planning Updated by [email or web address]: Sania Marin on 02/01/20 10:[address] Patient being discharged to inpatient rehab today DCP- Discharge Planning Updated by [id number]: Sania Marin on 02/01/20 7:[address] LATE ENTRY 01/31/20 @ 1650, PATIENT'S DAUGHTER QUESTIONED ABOUT THE PROGRESS ON THE AUTH FOR INPATIENT REHAB. I SPOKE WITH KEYONA AND SHE STATED THAT SHE HAD JUST RECEIVED A CALL FROM [facility] AND THEY HAVE AUTH, BUT WILL BOT HAVE A BED TILL TOMORROW. EXPAINED TO THE DAUGHTER AND SHE WAS UPSET, SHE ASKED TO SPEAK TO THE INPATIENT FIELD CHECKER. I WALKED HER DOWN TO INPATIENT REHAB TO SPEAK WITH [facility]. DCP- Discharge Planning Updated by [id number]: Sania Marin on 01/30/20 3:[address] SPOKE WITH PATIENT AND DAUGHTER AT LENGTH ABOUT PLAN OF CARE. THEY WOULD LIKE TO GO TO INPATIENT REHAB AT [facility]. SHE WILL NEED AUTH. IMM SERVED AND EXPLAINED AND [facility] FOR INPATIENT REHAB AT [facility] OBTAINED CM TO FOLLOW AND ASSIST NEEDED DCP- Discharge Planning Updated by [email or web address]: Sania Marin on 01/25/20 8:[address] Patient Name: EMILY VILLALTA Admission Status: Elective Accout number: [id number] Admission Date: 01-23-2020 : 1940 Admission Diagnosis: Attending: TALYA BAUM Current LOS: 2 Anticipated DC Date: Planned Disposition: Home with Home Health Primary Insurance: AETNA MEDICARE PPO or HMO Discharge Planning Comments: CM met with patient to complete initial dc planning assessment. CM educated patient on the CM role and verbal consent given by patient to complete assessment. Patient lives at home with her spouse Fernando where she was independent with her care. At discharge patient plans to return home and feels this is a safe discharge. Her daughter will be her milk truck driver home. CM discussed availability of home health, rehab services, and medical equipment. She would like to do HH, but not sure who to use. She was a little confused this AM & was more worried about the right BSC being delivered. She usually does not use DME. She has a walker and BSC that was delivered, but that it is not the right one. I will look into what she is talking about. She stated that her daughter was trying to take care of it. I will visit with her again at a later time when her confusion is better. Patient denied known discharge needs at this time. CM will continue to follow and will assist as needed with dc plans/needs. Manager Body: Sania Marin DCPIA - Discharge Planning Initial Assessment Updated by [email or web address]: Sania Marin on 01/25/20 9:35 am * Is the patient Alert and Oriented? Yes * PCP CATERINA * [facility]acy [facility] [address] * Preadmission Environment Home with Family * ADLs Independent * Equipment Bedside Commode Rolling Walker * List name and contact numbers for known caregivers / representatives who currently or will assist patient after discharge: JEANNE ( DAUGHTER) [phone] * Verbal permission to speak to the caregivers and representatives has been obtained from the patient. Yes * Community resources currently utilized None * Additional services required to return to the preadmission environment? Yes * Can the patient safely return to the preadmission environment? Yes * Has this patient been hospitalized within the prior 30 days at any hospital? No Coverage Notice Reviewer: [id number] - Sania Marin Notice Issued Date-Time: 01/30/2020 14:55 Notice Type: IM Discharge Notice Notice Delivered To: Family Member Relationship to Patient: Daughter Surgical Scrub Tech Name: JEANNE WELCH Delivery Method: HAND - Hand Delivered Aicha Days: Prior Verbal Notification: Recipient Understood Notice: Yes Recipient Signature: Yes Med Rec Note Co-signed by Attending: Coverage Notice Comment: IMM SERVED AND EXPLAINED Reviewer: [id number] - Sania Marin Notice Issued Date-Time: 01/30/2020 14:55 Notice Type: Patient Choice Letter Notice Delivered To: Patient Relationship to Patient: Surgical Scrub Tech Name: Delivery Method: HAND - Hand Delivered Aicha Days: Prior Verbal Notification: Recipient Understood Notice: Yes Recipient Signature: Yes Med Rec Note Co-signed by Attending: Coverage Notice Comment: [facility] WITH INPATIENT REHAB Last DP export: 02/01/20 7:10 a Patient Name: EMILY VILLALTA Page [phone] at 1204 All edits/amendments must be made on the electronic document DICTATION DATE: 02/01/20 120 CLINICAL DOCUMENT IMPROVEMENT EDUCATOR: OWEN 02/01/20 1203 RPT#: [id number] DC DATE:02/01/20 STATUS: DIS IN [facility] [address] [place] [address] END OF REPORT
--- NOTE | 2020-02-01 13:02 | MORECARE ---
CASE MANAGEMENT DISCHARGE SUMMARY PATIENT: EMILY VILLALTA UNIT: [id number] ADM DATE: 01/23/20 AGE: 79 : 41 SEX: F ROOM/BED: D.2213 AUTHOR: JAMES,DOC PHYSICIAN: REFERRING PHYSICIAN: TALYA BAUM MD DATE OF SERVICE: 02/01/20 Discharge Plan Patient Name: EMILY VILLALTA Facility: [facility]:[place] : 1940 Planned Disposition: Home with Home Health Anticipated Discharge Date: Discharge Date: 02/01/2020 Expected LOS: 0 Initial Reviewer: [email or web address] Initial Review Date: 01/23/2020 Generated: 02/01/20 2:01 pm Comments DCP- Discharge Planning Updated by [email or web address]: Sania Marin on 02/01/20 10:[address] Patient being discharged to inpatient rehab today DCP- Discharge Planning Updated by [id number]: Sania Marin on 02/01/20 7:[address] LATE ENTRY 01/31/20 @ 1650, PATIENT'S DAUGHTER QUESTIONED ABOUT THE PROGRESS ON THE AUTH FOR INPATIENT REHAB. I SPOKE WITH KEYONA AND SHE STATED THAT SHE HAD JUST RECEIVED A CALL FROM [facility] AND THEY HAVE AUTH, BUT WILL BOT HAVE A BED TILL TOMORROW. EXPAINED TO THE DAUGHTER AND SHE WAS UPSET, SHE ASKED TO SPEAK TO THE INPATIENT EMBROIDERY SUPERVISOR. I WALKED HER DOWN TO INPATIENT REHAB TO SPEAK WITH [facility]. DCP- Discharge Planning Updated by [email or web address]: Sania Marin on 01/30/20 3:[address] SPOKE WITH PATIENT AND DAUGHTER AT LENGTH ABOUT PLAN OF CARE. THEY WOULD LIKE TO GO TO INPATIENT REHAB AT [facility]. SHE WILL NEED AUTH. IMM SERVED AND EXPLAINED AND [facility] FOR INPATIENT REHAB AT [facility] OBTAINED CM TO FOLLOW AND ASSIST NEEDED DCP- Discharge Planning Updated by [id number]: Sania Marin on 01/25/20 8:[address] Patient Name: EMILY VILLALTA Admission Status: Elective Accout number: [id number] Admission Date: 01-23-2020 : 1940 Admission Diagnosis: Attending: TALYA BAUM Current LOS: 2 Anticipated DC Date: Planned Disposition: Home with Home Health Primary Insurance: AETNA MEDICARE PPO or HMO Discharge Planning Comments: CM met with patient to complete initial dc planning assessment. CM educated patient on the CM role and verbal consent given by patient to complete assessment. Patient lives at home with her spouse Fernando where she was independent with her care. At discharge patient plans to return home and feels this is a safe discharge. Her daughter will be her cross country truck driver home. CM discussed availability of home health, rehab services, and medical equipment. She would like to do HH, but not sure who to use. She was a little confused this AM & was more worried about the right BSC being delivered. She usually does not use DME. She has a walker and BSC that was delivered, but that it is not the right one. I will look into what she is talking about. She stated that her daughter was trying to take care of it. I will visit with her again at a later time when her confusion is better. Patient denied known discharge needs at this time. CM will continue to follow and will assist as needed with dc plans/needs. Chef Teacher: Sania Marin DCPIA - Discharge Planning Initial Assessment Updated by [id number]: Sania Marin on 01/25/20 9:35 am * Is the patient Alert and Oriented? Yes * PCP CATERINA * Pharmacy [facility] [address] * Preadmission Environment Home with Family * ADLs Independent * Equipment Bedside Commode Rolling Walker * List name and contact numbers for known caregivers / representatives who currently or will assist patient after discharge: JEANNE ( DAUGHTER) [phone] * Verbal permission to speak to the caregivers and representatives has been obtained from the patient. Yes * Community resources currently utilized None * Additional services required to return to the preadmission environment? Yes * Can the patient safely return to the preadmission environment? Yes * Has this patient been hospitalized within the prior 30 days at any hospital? No Coverage Notice Reviewer: [id number] - Sania Marin Notice Issued Date-Time: 01/30/2020 14:55 Notice Type: IM Discharge Notice Notice Delivered To: Family Member Relationship to Patient: Daughter Space Sciences Director Name: JEANNE WELCH Delivery Method: HAND - Hand Delivered Aicha Days: Prior Verbal Notification: Recipient Understood Notice: Yes Recipient Signature: Yes Med Rec Note Co-signed by Attending: Coverage Notice Comment: IMM SERVED AND EXPLAINED Reviewer: [id number] - Sania Marin Notice Issued Date-Time: 01/30/2020 14:55 Notice Type: Patient Choice Letter Notice Delivered To: Patient Relationship to Patient: Space Sciences Director Name: Delivery Method: HAND - Hand Delivered Aicha Days: Prior Verbal Notification: Recipient Understood Notice: Yes Recipient Signature: Yes Med Rec Note Co-signed by Attending: Coverage Notice Comment: [facility] WITH INPATIENT REHAB Last DP export: 02/01/20 11:04 a Patient Name: EMILY VILLALTA Page [phone] at 1302 All edits/amendments must be made on the electronic document DICTATION DATE: 02/01/20 1301 STRAPPER AND BUFFER: OWEN 02/01/20 1301 RPT#: [id number] DC DATE:02/01/20 STATUS: DIS IN [facility] [address] [place] [address] END OF REPORT
== END 2020-02-01 11:40 | DRG 469 ==
LOC: D.M2 01-18 10:00 → D.SDCHOLD 01-23 10:00 → D.M2 01-23 11:15 → D.SDCHOLD 01-23 11:45 → D.MS 01-23 11:45 → D.M3 01-23 11:45 → D.SDCHOLD 01-23 14:00 → D.M3 01-23 18:37 → D.MS 01-25 16:18
PROVIDERS: Anesthesiology; Family Medicine; ADMIT Orthopaedic Surgery; ATTEND Orthopaedic Surgery
PROC: 0SRB0JZ Replacement of Left Hip Joint with Synthetic Substitute, Open Approach (ICD-10-PCS; principal; 2020-01-23 11:15)
DX: M16.12 Unilateral primary osteoarthritis, left hip (principal); G93.41 Metabolic encephalopathy; E87.1 Hypo-osmolality and hyponatremia; N39.0 Urinary tract infection, site not specified; D62 Acute posthemorrhagic anemia; K56.7 Ileus, unspecified; R06.2 Wheezing; N28.9 Disorder of kidney and ureter, unspecified; I10 Essential (primary) hypertension

== ENCOUNTER 2020-02-01 12:30 | Inpatient (IN) | payer MEDICARE ==
[~2020-02-01] VITALS: Ht 147.3 cm; Wt 72.6 kg
[~2020-02-01 12:30] MED LIST: ACETAMINOPHEN500 M1 PO; ELIQUIS2.5 MG PO; HYDROCODON-ACE1 EA10 PO; LISINOPRIL20 MG PO; MYRBETRIQ25 MG PO; SYNTHROID200 MC1 PO
--- NOTE | 2020-02-01 16:32 | NUR ---
UP IN W/C ASSISTED TO B/R, DENIES ANY OTHER NEEDS AT THIS TIME, C/L AND FLUIDS IN REACH.
[2020-02-01 18:27] VITALS: BP 130/52; BMI 33.5
[2020-02-01 20:07] VITALS: BP 117/51
--- NOTE | 2020-02-01 20:37 | NUR ---
NEW ADMIT, PLEASANT, NO IMMEDIATE NEEDS NOTED, FALL PRECAUTIONS IN PLACE, FLUIDS/CALL LIGHT WITHIN REACH
--- NOTE | 2020-02-02 04:57 | NUR ---
PT ASLEEP AROUSES EASILY TO VOICE, RESPIRATIONS EVEN, NO NEEDS NOTED, FALL PRECAUTIONS IN PLACE, CALL LIGHT WITHIN REACH, NO FREE FLUIDS RESTRICTION
[2020-02-02 06:29] LABS: BASOPHILS 0.6 % (0-2); EOSINOPHILS 2.8 % (0-7); HEMATOCRIT 32.1 % (36.0-48.0); HEMOGLOBIN 10.3 g/dL (12-16); IMMATURE GRANULOCYTES 0.6 % (0-5); LYMPHOCYTES 21.2 % (15-50); MCH 29.6 pg (26.0-34.0); MCHC 32.1 g/dL (31.0-37.0); MCV 92.2 fL (80.0-100.0); MEAN PLATELET VOLUME 9.8 fL (7.4-10.4); MONOCYTES 10.1 % (2-11); NEUTROPHILS 64.7 % (40-80); PLATELET COUNT 335 10x3/uL (130-400); RBC 3.48 10x6/uL (4.00-5.40); RDW 13.8 % (11.5-14.5); WBC 8.6 10x3/uL (4.8-10.8)
[2020-02-02 06:49] LABS: ANION GAP 10.8 mmol/L (8-16); CALCIUM 9.7 mg/dL (8.5-10.1); CARBON DIOXIDE 26.9 mmol/L (21.0-32.0); POTASSIUM - SERUM 3.7 mmol/L (3.5-5.1)
[2020-02-02 08:00] VITALS: BP 136/52
--- NOTE | 2020-02-02 08:00 | NUR ---
SHIFT ASSMT COMPLETED.
--- NOTE | 2020-02-02 12:16 | NUR ---
PATIENT ADMITTED TO REHAB FROM ACUTE FLOOR. HER PCP IS DR. FOY IN [facility]. SHE WILL HAVE [address] HER DME AT HOME IS A WALKER AND BEDSIDE COMMODE. WILL CONTINUE TO FOLLOW WITH PATIENT.
[2020-02-02 13:48] VITALS: Ht 147.3 cm; Wt 72.6 kg
--- NOTE | 2020-02-02 16:00 | NUR ---
SITTING UP IN CHAIR.
--- NOTE | 2020-02-02 19:39 | NUR ---
PT UP IN CHAIR WATCHING TV, RESPIRATIONS EVEN, NO NEEDS NOTED, FALL PRECAUTIONS IN PLACE, FLUIDS/CALL LIGHT WITHIN REACH
[2020-02-02 21:19] VITALS: BP 126/63
[2020-02-03 06:46] LABS: BASOPHILS 0.6 % (0-2); HEMATOCRIT 30.7 % (36.0-48.0); IMMATURE GRANULOCYTES 0.6 % (0-5); LYMPHOCYTES 18.6 % (15-50); MCHC 32.6 g/dL (31.0-37.0); MCV 92.2 fL (80.0-100.0); MONOCYTES 8.7 % (2-11); NEUTROPHILS 68.5 % (40-80); PLATELET COUNT 332 10x3/uL (130-400); RBC 3.33 10x6/uL (4.00-5.40); RDW 13.9 % (11.5-14.5); WBC 8.3 10x3/uL (4.8-10.8)
[2020-02-03 06:57] LABS: ANION GAP 9.8 mmol/L (8-16); CALCIUM 9.2 mg/dL (8.5-10.1); CARBON DIOXIDE 27.2 mmol/L (21.0-32.0)
[2020-02-03 07:45] VITALS: BP 117/60
--- NOTE | 2020-02-03 07:45 | NUR ---
AWAKE.DENIES NEEDS.ASSESSMENT COMPLETED.CL IN EASY REACH,BED IN LOW POSITION.CONTINUE WITH CURRENT PLAN OF CARE.
--- NOTE | 2020-02-03 13:34 | NUR ---
Family voiced concerns regarding the wound vac. Daughter states it is increasing in output daily. I spoke with Dr. Tijerina's nurse Darlene who states it should be fine and that she will notify Dr. Tijerina. Family notified. Celia Rocha, DIRECTOR DATA ARCHITECTURE Rehab PD
[2020-02-03 20:00] VITALS: BP 92/64
--- NOTE | 2020-02-03 20:00 | NUR ---
PATIENT RECEIVERD SITTING UP IN BED. FAMILY IN ROOM. ASSESSMENT & VITAL SIGNS DONE. NO C/O PAIN OR DISTRESS. LEFT HIP DRESSING DRY & INTACT. WOUND VAC HAS GREEN COLOR INSIDE. BED LOW. CALL LIGHT WITHIN REACH. WILL CONTINUE TO MONITOR.
--- NOTE | 2020-02-04 02:19 | NUR ---
PATIENT USED CALL LIGHT FOR ASSIST. PATIENT WOUND VAC DISCONNECTED. PATIENT STANDBY ASSIST USING ROLLING WALKER. WOUND VAC PLACED IN POUCH ON WALKER. PATIENT HAD VOID ONLY. UNDER PANTS CHANGED. PATIENT CLEANED MANUEL AREA & HANDS WITH WIPE. PATIENT HAD STEADY SLOW GAIT USING WALKER TO & FROM BED. PATIENT BACK IN BED. RIGHT FOOT ELEVATED ON PILLOW. BED LOW. CALL LIGHT WITHIN REACH. WILL CONTINUE TO MONITOR.
[2020-02-04 07:30] VITALS: BP 145/66
--- NOTE | 2020-02-04 07:30 | NUR ---
AROUSES EASILY.RESTING QUIETLY IN BED.VS TAKEN AND ASSESSMENT COMPLETED.WILL CONTINUE WITH CURRENT PLAN OF CARE,BED IN LOW POSITION AND CL IN EASY REACH.
--- NOTE | 2020-02-04 19:30 | NUR ---
PATIENT RECEIVED SITTING UP IN BED. THIS NURSE & DAY RN REMOVED PROVENA WOUND VAC. SKIN & ALEXANDRE NO REDNESS OR WARMTH. 7 DAY AG DRESSING APPLIED. VITAL SIGNS & ASSESSMENT DONE. NO C/O PAIN OR DISTRESS. BED LOW. CALL LIGHT WITHIN REACH. WILL CONTINUE TO MONITOR.
[2020-02-04 20:34] VITALS: BP 130/51
--- NOTE | 2020-02-05 02:44 | NUR ---
I have reviewed this patient and I concur with the Shift Assessment completed by the Licensed Practical Nurse today this shift.
--- NOTE | 2020-02-05 03:38 | NUR ---
PATIENT EYES CLOSED. RESPIRATIONS 18 & EVEN. BED LOW. CALL LIGHT WITHIN REACH. WILL CONTINUE TO MONITOR.
[2020-02-05 08:46] VITALS: BP 119/56
--- NOTE | 2020-02-05 11:14 | NUR ---
PATIENT AMBULATED TO THE CAFETERIA WITH THIS NURSE WITH WALKER.
[2020-02-05 20:00] VITALS: BP 131/59
--- NOTE | 2020-02-05 20:00 | NUR ---
PATIENT RECEIVED SITTING UP IN BED. VITAL SIGNS & ASSESSMENT DONE. NO C/O PAIN OR DISTRESS. BED LOW. CALL LIGHT WITHIN REACH. WILL CONTINUE TO MONITOR.
--- NOTE | 2020-02-06 03:17 | NUR ---
I have reviewed this patient and I concur with the Shift Assessment completed by the Licensed Practical Nurse today this shift.
[2020-02-06 07:15] LABS: BASOPHILS 1.4 % (0-2); EOSINOPHILS 3.9 % (0-7); HEMATOCRIT 32.8 % (36.0-48.0); HEMOGLOBIN 10.4 g/dL (12-16); IMMATURE GRANULOCYTES 0.4 % (0-5); LYMPHOCYTES 29.8 % (15-50); MCH 29.9 pg (26.0-34.0); MCHC 31.7 g/dL (31.0-37.0); MCV 94.3 fL (80.0-100.0); MEAN PLATELET VOLUME 9.9 fL (7.4-10.4); MONOCYTES 9.9 % (2-11); NEUTROPHILS 54.6 % (40-80); PLATELET COUNT 395 10x3/uL (130-400); RBC 3.48 10x6/uL (4.00-5.40); WBC 7.2 10x3/uL (4.8-10.8)
[2020-02-06 07:29] LABS: ANION GAP 9.5 mmol/L (8-16); CALCIUM 9.4 mg/dL (8.5-10.1); CARBON DIOXIDE 26.2 mmol/L (21.0-32.0); CREATININE - SERUM 1.1 mg/dL (0.6-1.3); POTASSIUM - SERUM 4.7 mmol/L (3.5-5.1)
[2020-02-06 08:00] VITALS: BP 129/49
--- NOTE | 2020-02-06 08:08 | NUR ---
ALERT AND ORIENTED. EATING BREAKFAST. CL IN REACH.
--- NOTE | 2020-02-06 09:28 | NUR ---
CLINIAL UPDATES FAXED TO ISAI AT [facility] , AUTH. # [id number], WITH CONFORMATION OF FAX. WILL CONTINUE TO FOLLOW WITH PATIENT.
--- NOTE | 2020-02-06 13:43 | NUR ---
NO CHANGE IN ASSESSMENT. DAUGHTER AT BS. NO C/O PAIN.
--- NOTE | 2020-02-06 15:27 | NUR ---
Nutrition Follow-up: Diet: Regular PO intake: ~88% average x last 4 meals. Patient states that her appetite has been "okay." She was eating takeout that her family at brought for her at time of my visit. Family would like for her to receive gatorade and 2% with all meal trays to help bring up her Na levels. Last BM: 02/04/20. Wt: 160# (02/02/20) Meds reviewed. Labs noted: Na 130(L), Glu 112(H). Recommend continue current diet. Will update diet preferences. RD following.
--- NOTE | 2020-02-06 16:29 | NUR ---
PARTICIPATED IN THERAPY TODAY. NO DISTRESS NOTED. FAMILY AT BS.
[2020-02-06 19:27] VITALS: BP 120/47
--- NOTE | 2020-02-06 19:32 | NUR ---
PT IN BED WATCHING TV, NO IMMEDIATE NEEDS NOTED, RESPIRATIONS EVEN UNLABORED, FALL PRECAUTIONS IN PLACE,CALL LIGHT WITHIN REACH, NO FREE WATER
--- NOTE | 2020-02-06 22:37 | NUR ---
PT ASLEEP AROUSES EASILY TO VOICE, NO IMMEDIATE NEEDS NOTED, RESPIRATIONS EVEN UNLABORED, FALL PRECAUTIONS IN PLACE, FLUIDS/CALL LIGHT WITHIN REACH
--- NOTE | 2020-02-07 01:32 | NUR ---
PT ASLEEP AROUSES EASILY TO VOICE, NO IMMEDIATE NEEDS NOTED, RESPIRATIONS EVEN UNLABORED, FALL PRECAUTIONS IN PLACE, FLUIDS/CALL LIGHT WITHIN REACH
[2020-02-07 07:30] VITALS: BP 115/50
--- NOTE | 2020-02-07 19:20 | NUR ---
PT ASLEEP, NO NEEDS NOTED, FALL PRECAUTIONS IN PLACE, CALL LIGHT WITHIN REACH, NO FREE FLUIDS
--- NOTE | 2020-02-07 20:47 | NUR ---
PT RECIEVED SURESH DURAN FOR HIP PAIN
[2020-02-07 21:07] VITALS: BP 105/47
[2020-02-08 06:43] LABS: BASOPHILS 1.2 % (0-2); EOSINOPHILS 4.9 % (0-7); HEMOGLOBIN 10.2 g/dL (12-16); IMMATURE GRANULOCYTES 0.3 % (0-5); LYMPHOCYTES 27.4 % (15-50); MCH 29.7 pg (26.0-34.0); MCHC 31.9 g/dL (31.0-37.0); MEAN PLATELET VOLUME 9.9 fL (7.4-10.4); MONOCYTES 11.9 % (2-11); NEUTROPHILS 54.3 % (40-80); PLATELET COUNT 397 10x3/uL (130-400); RBC 3.44 10x6/uL (4.00-5.40); RDW 13.9 % (11.5-14.5); WBC 6.7 10x3/uL (4.8-10.8)
[2020-02-08 06:49] LABS: ANION GAP 11.9 mmol/L (8-16); CALCIUM 9.9 mg/dL (8.5-10.1); CARBON DIOXIDE 25.2 mmol/L (21.0-32.0); CREATININE - SERUM 1.2 mg/dL (0.6-1.3); POTASSIUM - SERUM 5.1 mmol/L (3.5-5.1)
[2020-02-08 08:08] VITALS: BP 137/54
--- NOTE | 2020-02-08 08:13 | NUR ---
ASSMT COMPLETED.BREAKFAST GIVEN.DENIES NNEDS.CL IN REACH.
[2020-02-08] MEDS ORDERED: HYDROCODON-ACE1 EA10 PO (12:36)
[2020-02-08] MEDS ORDERED: LISINOPRIL10 MG PO (12:36)
--- NOTE | 2020-02-08 12:36 | RHP ---
PATIENT: EMILY VILLALTA MEDICAL RECORD: [id number] ACCOUNT: [id number] LOCATION:[facility]1112 : 41 ADMISSION DATE: 02/01/20 REHABILITATION HISTORY AND PHYSICAL EXAMINATION POST ADMISSION PHYSICIAN EXAMINATION ADMITTING DIAGNOSIS: Left total hip replacement. HISTORY OF PRESENT ILLNESS: The patient is a 79-year-old female patient admitted to the hospital on 01/23/2020 for elective MARIE from osteoarthritis. The patient had some nonsurgical interventions that were just not successful. The patient was admitted. She has been receiving both physical and occupational therapy during her stay. She needs to be monitored closely for any postop complications. She has had some acute blood loss anemia, requiring blood transfusion. She has had some confusion. She is on antibiotic therapy for UTI. The patient has proximal muscle weakness, balance deficits, decreased activity tolerance, impaired mobility, decreased range of motion, low endurance, gait disturbance, fatigues easily, inability to care for herself. These are all barriers to her discharge home. She lives at home with her spouse and was independent with ADLs and supervision for bathing and safety at home. She is currently set-up for max assist for ADLs and mod assist for mobility. She and her family would like for her to return home at her prior level of functioning or better. COMORBIDITIES: Include acute metabolic encephalopathy, postop ileus status post left total hip replacement, anemia, constipation, hyponatremia, renal insufficiency and weakness. PAST MEDICAL HISTORY: Significant for constipation. She has got a history of chronic back pain. She has got a history of tobacco use. PAST SURGICAL HISTORY: Includes gallbladder, appendectomy, hysterectomy and shoulder surgery. ALLERGIES: CODEINE AND TORADOL. CURRENT MEDICATIONS: Include Myrbetriq 25 mg daily, lisinopril 20 mg daily, Synthroid 200 mcg daily, Eliquis 2.5 mg b.i.d., Tylenol 500 mg every 6 hours p.r.n. and Limestone 10/325 one tab every 4 to 6 hours p.r.n. pain. HABITS: Does have a distant history of tobacco use. FAMILY HISTORY: Noncontributory. SOCIAL HISTORY: The patient hopes to return back home and get back to her prior level of functioning. REVIEW OF SYSTEMS: GENERAL: Does complain of weakness and fatigue. HEENT: Denies cold, cough, or congestion. CARDIOVASCULAR: Denies chest pain. PHYSICAL EXAMINATION: VITAL SIGNS: Stable, afebrile. GENERAL: An elderly female, in no acute distress upon exam. HISTORY AND PHYSICAL [id number] AMBAREMILY MEIER HEENT: Normocephalic and atraumatic. Mucosa moist. NECK: Supple. No lymphadenopathy. LUNGS: Clear in upper gaitan with no wheezing, rhonchi or rales. HEART: Regular rate and rhythm. No murmurs, rubs or gallops. ABDOMEN: Soft, benign and nondistended. Positive bowel sounds times 4. EXTREMITIES: No clubbing, cyanosis or edema. Postop area appears normal. NEUROLOGIC: She does have some proximal muscle weakness. LABORATORY DATA: White count is 8.6, H&H of 10 and 32 and platelet count was noted to be 335. Sodium is 136, potassium 3.7, BUN and creatinine of 10 and 1.0 and blood sugar is noted to be 117. ASSESSMENT: This is a 79-year-old female patient admitted to rehab with a working diagnosis of elective total hip replacement secondary to failed nonsurgical treatment. The patient has potential to make improvement. We instituted the following multidisciplinary therapies including, but not limited to physical, occupational, respiratory, speech, nutritional services, prosthetics and orthotics. Given her complex medical condition and risks for more complications, rehabilitation services cannot be provided at a low level of care such as snf facility. PLAN: 1. Admit to [facility] for inpatient therapy to include the following disciplines; A. Physical therapy to improve gait, all transfer skills and bed mobility to a modified independent level. B. Occupational therapy to improve activities of daily living. C. Case management to help with discharge planning and placement options. D. Nutrition to assist with nutritional needs. E. Rehabilitation nursing to assist in monitoring the patient's underlying medical conditions and to assist with any type of bowel or bladder management. 2. The patient's current medication and medical care will be continued. 3. The patient will be placed on standard fall precautions. 4. The patient's estimated length of stay is approximately 7-10 days. 5. We will just watch this patient during her stay here. We will follow up her H&H's. I am going to check a TSH level on her secondary to her very high dosage of Synthroid at this time and I will see again in the a.m. TRANSINT:[id number] Voice Confirmation ID: [id number] DOCUMENT ID: [id number] SEBASTIAN notes whether there has been none or any medical/functional change since admission: - No change since preadmission screen. SEBASTIAN attests patient continues to be appropriate for IRF: - Continues to be appropriate. HISTORY AND PHYSICAL [id number] EMILY VILLALTA,KENAN LANG MD at 1236 CC: [id number] DICTATION DATE: 02/02/20 0853 RN CHARGE: 02/02/20 1050 ADM IN [place] [id number] [place] [address]
--- NOTE | 2020-02-08 19:33 | NUR ---
PT ASLEEP AROUSES EASILY TO VOICE, RESPIRATIONS EVEN AND UNLABORED, NO IMMEDIATE NEEDS NOTED, FALL PRECAUTIONS IN PLACE, FLUIDS/CALL LIGHT WITHIN REACH
[2020-02-08 21:15] VITALS: BP 114/60
--- NOTE | 2020-02-09 07:30 | NUR ---
RECEIVED SITTING UP IN BED,DRESSED AND READY TO GO HOME.DENIES NEEDS,ASSESSMENT COMPLETED.CL IN EASY REACH,BED IN LOW POSITION.
[2020-02-09 08:00] VITALS: BP 134/59
--- NOTE | 2020-02-09 10:06 | NUR ---
PATIENT DISCHARGING HOME WITH FAMILY TODAY . [facility] WILL PROVIDE THERAPY AT HOME. NO COMPARE DATA REVIEWED , PATIENT DAUGHTER CHOSE [facility]. NO NEW DME NEEDED AT THIS TIME. DR. LEAL 02/16/20 @ 11:20, DR. BAUM 02/15/20 @ 2:45. ROAYL SIGNED, IMM SERVED AND EXPLAINED, ONE GIVEN TO PATIENT AND ONE FILED IN CHART. DISCHARGE INSTRUCTIONS FAXED TO [facility] AND TO [facility], (ISAI VARELA CM, , AUTH. # [id number], WITH FAX CONFORMATION RECIEVED ) AND REVIEWED WITH PATIENT AND DAUGHTER PER PRIMARY NURSE.
--- NOTE | 2020-02-09 12:00 | NUR ---
DISCHARGE TEACHING WRITTEN AND ORAL DONE WITH PATIENT AND DAUGHTER.ALL QUESTIONS ANSWERED.
--- NOTE | 2020-02-09 12:20 | NUR ---
DISCHARGED HOME VIA WHEELCHAIR TO [facility].HAS ALL PERSONAL ITEMS AND INSTRUCTIONS.HAS PRESCRIPTION FOR [facility].
== END 2020-02-09 12:20 | disposition home health service (06) | DRG 559 ==
LOC: D.REHAB 12:30
PROVIDERS: ADMIT Emergency Medicine; ATTEND Emergency Medicine
DX: Z47.1 Aftercare following joint replacement surgery (principal); G93.41 Metabolic encephalopathy; E87.1 Hypo-osmolality and hyponatremia; D62 Acute posthemorrhagic anemia; N39.0 Urinary tract infection, site not specified; Z96.642 Presence of left artificial hip joint; K59.00 Constipation, unspecified; N28.9 Disorder of kidney and ureter, unspecified; M62.81 Muscle weakness (generalized); R26.9 Unspecified abnormalities of gait and mobility; R53.83 Other fatigue; M16.12 Unilateral primary osteoarthritis, left hip; I10 Essential (primary) hypertension; R06.2 Wheezing

== ENCOUNTER → 2020-02-25 06:04 | Outpatient (CLI) | payer MEDICARE ==
[2020-02-02 13:48] VITALS: BMI 33.4
[~2020-02-25 06:04] MED LIST changes: +LISINOPRIL10 MG PO
[2020-02-25 06:51] LABS: BASOPHILS 0.6 % (0-2); HEMATOCRIT 37.6 % (36.0-48.0); HEMOGLOBIN 11.3 g/dL (12-16); IMMATURE GRANULOCYTES 0.1 % (0-5); LYMPHOCYTES 25.6 % (15-50); MCH 29.4 pg (26.0-34.0); MCHC 30.1 g/dL (31.0-37.0); MCV 97.9 fL (80.0-100.0); MEAN PLATELET VOLUME 10.7 fL (7.4-10.4); MONOCYTES 6.7 % (2-11); PLATELET COUNT 363 10x3/uL (130-400); RBC 3.84 10x6/uL (4.00-5.40); RDW 14.6 % (11.5-14.5)
[2020-02-25 08:11] LABS: POTASSIUM - SERUM 5.4 mmol/L (3.5-5.1)
[2020-02-25 09:25] LABS: ANION GAP 19.6 mmol/L (8-16); BILIRUBIN - TOTAL 0.15 mg/dL (0.2-1.3); CALCIUM 9.7 mg/dL (8.5-10.1); CARBON DIOXIDE 20.8 mmol/L (21.0-32.0); CREATININE - SERUM 1.6 mg/dL (0.6-1.3); PROTEIN - SERUM 7.4 g/dL (6.4-8.2)
[2020-02-25 09:28] LABS: BILIRUBIN NEGATIVE (NEGATIVE); GLUCOSE NEGATIVE (NEGATIVE); KETONE NEGATIVE (NEGATIVE); NITRITE NEGATIVE (NEGATIVE); UROBILINOGEN NORMAL (NORMAL)
[2020-02-25 09:29] LABS: BACTERIA FEW /hpf (NEGATIVE); EPITHELIAL CELLS OCC /hpf (0-5); RED CELLS - URINE 0-5 /hpf (0-5)
== END | disposition home or self-care (01) ==
LOC: D.LABREF 06:04
PROVIDERS: ATTEND Family Medicine
DX: R79.89 Other specified abnormal findings of blood chemistry (principal); N39.0 Urinary tract infection, site not specified